=== PATIENT | female | born 1935 | race Caucasian/White ===

== ENCOUNTER 2017-05-31 21:19 | Inpatient (IN) | payer OTHER, MEDICARE ==
[~2017-05-31] VITALS: Ht 160 cm; Wt 83.5 kg
[2017-05-31 23:38] LABS: BASOPHIL % 0.6 % (0-2); PLATELET COUNT 232 x10^3mcL (130-400); RED CELL DISTRIBUTION WIDTH 13.4 % (11.5-14.5)
[2017-06-01] VITALS (11 sets, daily range): BP systolic 152–214; BP diastolic 69–97; Ht 160 cm; Wt 83.5 kg
[2017-06-01 00:05] LABS: ALKALINE PHOSPHATASE 92 U/L (46-116); ALT/SGPT 18 U/L (14-59); AST/SGOT 17 U/L (15-37); BILIRUBIN TOTAL 0.2 mg/dL (0.20-1.00); CALCIUM 8.3 mg/dL (8.5-10.1); CARBON DIOXIDE 26.9 mmol/L (21-32); CHLORIDE SERUM 107 mmol/L (98-107); GLUCOSE SERUM 103 mg/dL (74-106); POTASSIUM SERUM 3.5 mmol/L (3.5-5.1); SODIUM SERUM 142 mmol/L (136-145); TOTAL PROTEIN, SERUM 6.5 g/dL (6.4-8.2)
[2017-06-01] MEDS ORDERED: LOSARTAN POTASS25 M1 PO (00:33)
[2017-06-01] MEDS ORDERED: SYNTHROID0.05 MG PO (00:34)
[2017-06-01] MEDS ORDERED: CARVEDILOL3.125 M1 PO (00:34)
[2017-06-01] MEDS ORDERED: CYMBALTA20 M1 PO (00:34)
[2017-06-01] MEDS ORDERED: ALPRAZOLAM0.25 MG (00:34)
[2017-06-01] MEDS ORDERED: SIMVASTATIN10 M1 PO (00:34)
[2017-06-01 01:15] LABS: CREATININE SERUM 0.9 mg/dL (0.6-1.0)
[2017-06-01 01:29] LABS: microscopic required? YES; urine erythrocyte TRACE (NEGATIVE)
[2017-06-01 02:24] LABS: T3 TOTAL 0.74 ng/mL
[2017-06-01 03:07] LABS: PHOSPHOROUS 3.7 mg/dL (2.5-4.9)
[2017-06-01 03:09] LABS: CHOLESTEROL/HDL RATIO 2.4
[2017-06-01 03:31] LABS: FREE T4 1.48 ng/dL (0.76-1.46); FREE THYROXINE INDEX 3.9 ug/dL (1.4-4.5); T4(THYROXINE) 10.3 ug/dL (4.7-13.3)
[2017-06-01 08:43] LABS: BASOPHIL % 0.4 % (0-2); PLATELET COUNT 234 x10^3mcL (130-400); RED CELL DISTRIBUTION WIDTH 13.4 % (11.5-14.5)
[2017-06-01 09:22] LABS: CALCIUM 8.8 mg/dL (8.5-10.1); CARBON DIOXIDE 24.7 mmol/L (21-32); CHLORIDE SERUM 107 mmol/L (98-107); CREATININE SERUM 0.7 mg/dL (0.6-1.0); GLUCOSE SERUM 100 mg/dL (74-106); POTASSIUM SERUM 3.7 mmol/L (3.5-5.1); SODIUM SERUM 143 mmol/L (136-145)
[2017-06-02 06:26] VITALS: BP 170/82
[2017-06-02 07:01] LABS: BASOPHIL % 0.4 % (0-2); PLATELET COUNT 227 x10^3mcL (130-400); RED CELL DISTRIBUTION WIDTH 13.6 % (11.5-14.5)
[2017-06-02 07:46] LABS: CARBON DIOXIDE 22.3 mmol/L (21-32); CHLORIDE SERUM 108 mmol/L (98-107); CREATININE SERUM 0.7 mg/dL (0.6-1.0); POTASSIUM SERUM 3.6 mmol/L (3.5-5.1); SODIUM SERUM 143 mmol/L (136-145)
[2017-06-02 07:57] LABS: CALCIUM 8.4 mg/dL (8.5-10.1); GLUCOSE SERUM 99 mg/dL (74-106); MAGNESIUM 1.9 mg/dL (1.8-2.4); PHOSPHOROUS 3.6 mg/dL (2.5-4.9)
[2017-06-02 08:00] VITALS: BP 164/64
[2017-06-02 12:43] VITALS: BP 146/74; BP 174/83
[2017-06-02 16:39] VITALS: BP 154/86
[2017-06-02 22:08] VITALS: BP 144/81
[2017-06-03] VITALS (7 sets, daily range): BP systolic 130–188; BP diastolic 56–92
[2017-06-03 06:21] LABS: BASOPHIL % 0.4 % (0-2); PLATELET COUNT 207 x10^3mcL (130-400); RED CELL DISTRIBUTION WIDTH 13.4 % (11.5-14.5)
[2017-06-03 07:23] LABS: CALCIUM 8.3 mg/dL (8.5-10.1); CARBON DIOXIDE 24.1 mmol/L (21-32); CHLORIDE SERUM 107 mmol/L (98-107); CREATININE SERUM 0.6 mg/dL (0.6-1.0); GLUCOSE SERUM 96 mg/dL (74-106); PHOSPHOROUS 3.1 mg/dL (2.5-4.9); POTASSIUM SERUM 3.4 mmol/L (3.5-5.1); SODIUM SERUM 142 mmol/L (136-145)
[2017-06-03] MEDS ORDERED: XARELTO15 M1 PO (15:25)
[2017-06-03] MEDS ORDERED: LIPI10 PO (15:26)
[2017-06-03] MEDS ORDERED: CORE25 PO (15:27)
[2017-06-03] MEDS ORDERED: ECO81 PO (15:28)
[2017-06-03] MEDS ORDERED: LEVAQUIN750 MG PO (15:29)
[2017-06-03] MEDS ORDERED: LAC PO (15:30)
[2017-06-03] MEDS ORDERED: ADA30 PO (15:39)
[2017-06-04 05:51] VITALS: BP 136/61
[2017-06-04 06:03] LABS: PLATELET COUNT 220 x10^3mcL (130-400); RED CELL DISTRIBUTION WIDTH 13.4 % (11.5-14.5)
[2017-06-04 06:24] LABS: CALCIUM 8.5 mg/dL (8.5-10.1); CHLORIDE SERUM 105 mmol/L (98-107); CREATININE SERUM 0.7 mg/dL (0.6-1.0); GLUCOSE SERUM 109 mg/dL (74-106); MAGNESIUM 2.1 mg/dL (1.8-2.4); PHOSPHOROUS 3.3 mg/dL (2.5-4.9); POTASSIUM SERUM 3.7 mmol/L (3.5-5.1); SODIUM SERUM 142 mmol/L (136-145)
[2017-06-04 09:17] VITALS: BP 113/50
[2017-06-04 09:30] VITALS: BP 113/50
== END 2017-06-04 14:12 | disposition home health service (06) | DRG 299 ==
LOC: ED 21:19 → DU 23:33 → MU 06-03 08:56
PROVIDERS: Emergency Medicine; Family Medicine
DX: I82.401 Acute embolism and thrombosis of unspecified deep veins of right lower extremity (principal); N17.0 Acute kidney failure with tubular necrosis; N39.0 Urinary tract infection, site not specified; E44.0 Moderate protein-calorie malnutrition; I42.2 Other hypertrophic cardiomyopathy; I50.22 Chronic systolic (congestive) heart failure; I11.0 Hypertensive heart disease with heart failure; E03.9 Hypothyroidism, unspecified; K21.9 Gastro-esophageal reflux disease without esophagitis; F32.9 Major depressive disorder, single episode, unspecified; I16.0 Hypertensive urgency; Z53.29 Procedure and treatment not carried out because of patient's decision for other reasons; M17.0 Bilateral primary osteoarthritis of knee; E87.6 Hypokalemia; R26.81 Unsteadiness on feet; M94.0 Chondrocostal junction syndrome [Tietze]; E78.5 Hyperlipidemia, unspecified; F41.1 Generalized anxiety disorder; Z90.89 Acquired absence of other organs; Z90.49 Acquired absence of other specified parts of digestive tract; Z88.6 Allergy status to analgesic agent; Z88.1 Allergy status to other antibiotic agents; Z88.5 Allergy status to narcotic agent; Z88.8 Allergy status to other drugs, medicaments and biological substances; Z68.32 Body mass index [BMI] 32.0-32.9, adult
CPT/HCPCS: 83880; 84439; 97110-GP; 97116-GP; 97530-GP; 97535-GP; J0696; J1644; J1885; J3490; J7030; Q0092

== ENCOUNTER 2017-06-08 10:58 | Inpatient (IN) | payer OTHER, MEDICARE ==
[~2017-06-08] VITALS: Ht 160 cm; Wt 82.5 kg
[~2017-06-08 10:58] MED LIST: ADA30 PO; ALPRAZOLAM0.25 MG; CARVEDILOL3.125 M1 PO; CORE25 PO; CYMBALTA20 M1 PO; ECO81 PO; LAC PO; LEVAQUIN750 MG PO; LIPI10 PO; LOSARTAN POTASS25 M1 PO; SIMVASTATIN10 M1 PO; SYNTHROID0.05 MG PO; XARELTO15 M1 PO
[2017-06-08 13:03] LABS: BASOPHIL % 0.4 % (0-2); PLATELET COUNT 260 x10^3mcL (130-400); RED CELL DISTRIBUTION WIDTH 13.7 % (11.5-14.5)
[2017-06-08 13:12] LABS: CALCIUM 8.7 mg/dL (8.5-10.1); CARBON DIOXIDE 24.6 mmol/L (21-32); CHLORIDE SERUM 105 mmol/L (98-107); CREATININE SERUM 1.1 mg/dL (0.6-1.0); GLUCOSE SERUM 103 mg/dL (74-106); POTASSIUM SERUM 3.7 mmol/L (3.5-5.1); SODIUM SERUM 141 mmol/L (136-145)
[2017-06-08 13:17] LABS: ALKALINE PHOSPHATASE 80 U/L (46-116); ALT/SGPT 17 U/L (14-59); AST/SGOT 16 U/L (15-37); TOTAL PROTEIN, SERUM 6.8 g/dL (6.4-8.2)
[2017-06-08 13:19] LABS: ALBUMIN 2.8 g/dL (3.4-5.0)
[2017-06-08 15:45] LABS: PHOSPHOROUS 3.7 mg/dL (2.5-4.9)
[2017-06-08 16:00] LABS: FREE T4 1.61 ng/dL (0.76-1.46); FREE THYROXINE INDEX 4.1 ug/dL (1.4-4.5); T4(THYROXINE) 10.5 ug/dL (4.7-13.3)
[2017-06-08 16:31] LABS: T3 TOTAL 0.58 ng/mL
[2017-06-08 16:49] LABS: UA SPECIFIC GRAVITY 1.025 (1.005-1.035); microscopic required? YES; urine erythrocyte TRACE (NEGATIVE)
[2017-06-08 18:22] VITALS: BP 169/77
[2017-06-08 22:07] VITALS: BP 127/68
[2017-06-09 05:55] LABS: BASOPHIL % 0.4 % (0-2); PLATELET COUNT 256 x10^3mcL (130-400); RED CELL DISTRIBUTION WIDTH 13.3 % (11.5-14.5)
[2017-06-09 06:26] LABS: CALCIUM 8.1 mg/dL (8.5-10.1); CARBON DIOXIDE 24.8 mmol/L (21-32); CHLORIDE SERUM 107 mmol/L (98-107); CREATININE SERUM 0.8 mg/dL (0.6-1.0); GLUCOSE SERUM 97 mg/dL (74-106); POTASSIUM SERUM 3.3 mmol/L (3.5-5.1); SODIUM SERUM 142 mmol/L (136-145)
[2017-06-09 06:40] VITALS: BP 146/72
[2017-06-09 08:52] VITALS: BP 154/61
[2017-06-09 13:28] VITALS: BP 125/50
[2017-06-09 16:37] VITALS: BP 138/64
[2017-06-09 20:13] VITALS: BP 158/63
[2017-06-10 05:20] VITALS: BP 143/67
[2017-06-10 06:15] LABS: BASOPHIL % 0.6 % (0-2); PLATELET COUNT 258 x10^3mcL (130-400); RED CELL DISTRIBUTION WIDTH 13.6 % (11.5-14.5)
[2017-06-10 06:29] LABS: CALCIUM 8.5 mg/dL (8.5-10.1); CARBON DIOXIDE 26.3 mmol/L (21-32); CHLORIDE SERUM 108 mmol/L (98-107); CREATININE SERUM 0.9 mg/dL (0.6-1.0); GLUCOSE SERUM 95 mg/dL (74-106); PHOSPHOROUS 3.7 mg/dL (2.5-4.9); SODIUM SERUM 143 mmol/L (136-145)
[2017-06-10 09:32] VITALS: BP 126/68
[2017-06-10] MEDS ORDERED: METHOCARBAMOL500 MG PO (09:35)
[2017-06-10 13:59] VITALS: BP 124/57
[2017-06-10 17:34] VITALS: BP 159/63
[2017-06-10 21:18] VITALS: BP 147/70
[2017-06-11 05:56] VITALS: BP 146/74
[2017-06-11 06:49] LABS: BASOPHIL % 0.6 % (0-2); PLATELET COUNT 271 x10^3mcL (130-400); RED CELL DISTRIBUTION WIDTH 13.5 % (11.5-14.5)
[2017-06-11 06:51] LABS: CALCIUM 8.9 mg/dL (8.5-10.1); CARBON DIOXIDE 24.8 mmol/L (21-32); CHLORIDE SERUM 107 mmol/L (98-107); CREATININE SERUM 0.8 mg/dL (0.6-1.0); GLUCOSE SERUM 92 mg/dL (74-106); MAGNESIUM 2.3 mg/dL (1.8-2.4); PHOSPHOROUS 3.9 mg/dL (2.5-4.9); POTASSIUM SERUM 3.8 mmol/L (3.5-5.1); SODIUM SERUM 141 mmol/L (136-145)
[2017-06-11 09:17] VITALS: BP 154/69
[2017-06-11 09:45] VITALS: BP 154/69
[2017-06-11 11:38] VITALS: Ht 160 cm; Wt 82.5 kg
[2017-06-11 14:02] VITALS: BP 141/64
[2017-06-11 17:36] VITALS: BP 147/67
[2017-06-11 21:21] VITALS: BP 135/60
[2017-06-12 06:12] LABS: BASOPHIL % 0.2 % (0-2); PLATELET COUNT 258 x10^3mcL (130-400); RED CELL DISTRIBUTION WIDTH 13.3 % (11.5-14.5)
[2017-06-12 06:13] LABS: CALCIUM 8.8 mg/dL (8.5-10.1); CARBON DIOXIDE 27.3 mmol/L (21-32); CHLORIDE SERUM 107 mmol/L (98-107); GLUCOSE SERUM 91 mg/dL (74-106); PHOSPHOROUS 4.7 mg/dL (2.5-4.9); POTASSIUM SERUM 4.5 mmol/L (3.5-5.1); SODIUM SERUM 142 mmol/L (136-145)
[2017-06-12 09:19] VITALS: BP 126/48
[2017-06-12 12:33] VITALS: BP 126/48
[2017-06-12 12:38] VITALS: BP 132/61
[2017-06-12 17:20] VITALS: BP 145/59
== END 2017-06-12 19:30 | DRG 682 ==
LOC: ED 10:58 → DU 15:19
PROVIDERS: Emergency Medicine; Family Medicine
DX: N17.0 Acute kidney failure with tubular necrosis (principal); E43 Unspecified severe protein-calorie malnutrition; I42.2 Other hypertrophic cardiomyopathy; N39.0 Urinary tract infection, site not specified; J98.11 Atelectasis; M48.54XA Collapsed vertebra, not elsewhere classified, thoracic region, initial encounter for fracture; G90.8 Other disorders of autonomic nervous system; I10 Essential (primary) hypertension; E03.9 Hypothyroidism, unspecified; F32.9 Major depressive disorder, single episode, unspecified; K21.9 Gastro-esophageal reflux disease without esophagitis; E87.6 Hypokalemia; Z88.8 Allergy status to other drugs, medicaments and biological substances; G89.29 Other chronic pain; M54.9 Dorsalgia, unspecified; Z79.82 Long term (current) use of aspirin; Z86.718 Personal history of other venous thrombosis and embolism
CPT/HCPCS: 72072; 83880; 84439; 94150; 97110-GP; 97116-GP; 97530-GP; J1885; J2405; J7030; J7040; J7620; Q0092